=== PATIENT | male | born 1935 | race Two or more races ===

== ENCOUNTER 2023-10-06 13:21 | Inpatient (IN) | payer OTHER ==
[~2023-10-06] VITALS: Ht 165.1 cm; Wt 56.7 kg
[2023-10-06] MEDS ORDERED: FARXIGA10 MG PO (13:50)
[2023-10-06] MEDS ORDERED: LOSARTAN POTASS50 MG PO (13:51)
[2023-10-06] MEDS ORDERED: METOPROLOL SUCC50 MG PO (13:51)
[2023-10-06] MEDS ORDERED: AZITHROMYCIN250 MG PO (13:51)
[2023-10-06] MEDS ORDERED: FINASTERIDE5 MG PO (13:51)
[2023-10-06] MEDS ORDERED: ELIQUIS2.5 MG PO (13:52)
[2023-10-06] MEDS ORDERED: GLIMEPIRIDE2 M1 PO (13:52)
[2023-10-06] MEDS ORDERED: ISOSORBIDE MONO30 M2 PO (13:52)
[2023-10-06] MEDS ORDERED: BENZONATATE100 MG PO (13:53)
[2023-10-06 15:46] LABS: URINE APPEARANCE Clear; URINE BILIRRUBIN Negative (NEGATIVE); URINE BLOOD Negative; URINE COLOR Yellow; URINE LEUKOCYTE Negative; URINE NITRATE Negative; URINE PROTEIN Trace (NEGATIVE); URINE UROBILINOGEN 0.2 E.U./dl
[2023-10-06 15:50] LABS: URINE EPITHELIAL CELLS 2.6 uL (0.0-38.8)
[2023-10-06 16:20] LABS: HEMATOCRIT 42.4 % (39.0-48.0); HEMOGLOBIN 14.4 g/dL (13-16.00); MEAN CORPUSCULAR HEMOGLOBIN 30.6 pg (27.00-32.0); PLATELET COUNT 213 K/uL (150-450); RED BLOOD COUNT 4.71 M/uL (4.00-6.00); RED CELL DISTRIBUTION WIDTH 13.6 % (11.5-14.5)
[2023-10-06 16:21] LABS: URINE GLUCOSE >=1000 MG/DL (NEGATIVE); URINE RBC 1.4 uL (0.0-20.8); URINE WBC 1.2 uL (0.0-23.2)
[2023-10-06 16:44] LABS: ALBUMIN 2.9 gm/dL (3.4-5.0); BILIRUBIN TOTAL 0.59 mg/dL (0.3-1.2); CALCIUM 8.8 mg/dL (8.5-10.1); CREATININE SERUM 1.35 mg/dL (0.70-1.30); GFR 49.88; POTASSIUM 4.36 mEq/L (3.5-5.1); TOTAL PROTEIN 6.9 gm/dL (6.4-8.2)
[2023-10-06 16:46] LABS: ABG PH 7.455 (7.35-7.45); ABG PO2 76.3 mmHg (80-100); ABG pCO2 30.2 mmHg (35-45); BASE EXCESS -1.9 mmol/l; BICARBONATE 20.8 mmol/l (23-25); SaO2 95.8 %; Tco2 21.7 mmol/l
[2023-10-06 16:47] LABS: allen test SATISFACTORY; puncture site RADIAL RIGHT
[2023-10-06 16:48] LABS: o2 21 %
[2023-10-06 22:22] LABS: INR 1.16
[2023-10-06 22:25] LABS: D DIMER 0.61 MG/L; PARTIAL THROMBOPLASTIN TIME 29.1 SECONDS (22.0-34.0)
[2023-10-09 14:26] LABS: HEMATOCRIT 45.7 % (39.0-48.0); HEMOGLOBIN 15.4 g/dL (13-16.00); MEAN CELL VOLUME 91.4 fL (80.0-100.00); MEAN CORPUSCULAR HEMOGLOBIN 30.8 pg (27.00-32.0); MEAN CORPUSCULAR HGB CONC 33.7 g/dl (32.0-36.0); PLATELET COUNT 242 K/uL (150-450); RED BLOOD COUNT 4.99 M/uL (4.00-6.00); RED CELL DISTRIBUTION WIDTH 13.5 % (11.5-14.5)
[2023-10-09 14:55] LABS: ALBUMIN 3.2 gm/dL (3.4-5.0); CALCIUM 9.3 mg/dL (8.5-10.1); CREATININE SERUM 1.56 mg/dL (0.70-1.30); GFR 42.21; MAGNESIUM 1.8 mg/dL (1.8-2.4); PHOSPHOROUS 3.2 mg/dL (2.5-4.9); POTASSIUM 4.73 mEq/L (3.5-5.1)
[2023-10-11 08:28] LABS: HEMATOCRIT 41.7 % (39.0-48.0); HEMOGLOBIN 14.2 g/dL (13-16.00); MEAN CELL VOLUME 88.9 fL (80.0-100.00); MEAN CORPUSCULAR HEMOGLOBIN 30.2 pg (27.00-32.0); PLATELET COUNT 252 K/uL (150-450); RED BLOOD COUNT 4.69 M/uL (4.00-6.00); RED CELL DISTRIBUTION WIDTH 13.3 % (11.5-14.5)
[2023-10-11 09:08] LABS: ALBUMIN 2.8 gm/dL (3.4-5.0); BILIRUBIN TOTAL 0.47 mg/dL (0.3-1.2); CALCIUM 9.1 mg/dL (8.5-10.1); CREATININE SERUM 1.29 mg/dL (0.70-1.30); GFR 52.56; GLOBULINA 3.7 G/DL (2.4-3.5); POTASSIUM 4.98 mEq/L (3.5-5.1); TOTAL PROTEIN 6.5 gm/dL (6.4-8.2)
== END 2023-10-12 09:59 | disposition home or self-care (01) | DRG 309 ==
LOC: ER 13:21 → SEC-K 21:59 → MEDJ 21:59
PROVIDERS: General Practice; Internal Medicine Nephrology; Nurse Practitioner Family; ADMIT Specialist; ATTEND Specialist
PROC: B24BYZZ Ultrasonography of Heart with Aorta using Other Contrast (ICD-10-PCS; principal; 2023-10-06)
PROC: 4A12X4Z Monitoring of Cardiac Electrical Activity, External Approach (ICD-10-PCS; 2023-10-07)
DX: I48.20 Chronic atrial fibrillation, unspecified (principal); I13.0 Hypertensive heart and chronic kidney disease with heart failure and stage 1 through stage 4 chronic kidney disease, or unspecified chronic kidney disease; I50.20 Unspecified systolic (congestive) heart failure; N18.32 Chronic kidney disease, stage 3b; I50.9 Heart failure, unspecified; E11.9 Type 2 diabetes mellitus without complications; Z79.4 Long term (current) use of insulin